=== PATIENT | male | born 1985 | race Hispanic/Latino ===

== ENCOUNTER 2018-10-15 10:39 | Outpatient (CLI) | payer OTHER ==
[~2018-10-15 10:39] MED LIST: Iopamidol 370 76% 100 ML VIAL ONE
--- NOTE | 2018-10-15 14:53 | CT ---
CT ABDOMEN WITH IV CONTRAST 10/15/2018 CLINICAL INFORMATION: Diarrhea for one year as well as abdominal pain. Patient diagnosed with Crohn's disease. COMPARISON: None. Technique: Multiple contiguous axial CT images are obtained through the abdomen and pelvis with IV contrast. Cor onal reformatted images are provided. FINDINGS: Lower Chest: within normal limits. Vessels: Thoracic aorta is normal in caliber. Abdomen: Portal vein:Patent Gallbladder: Within normal limits for CT imaging. Liver: A subcentimeter too small to characterize hypodense lesion is seen in the lateral aspect right hepatic lobe; the liver otherwise demonstrates a normal CT appearance. Pancreas: within normal limits. Spleen: within normal limits. Adrenals: within normal limits. Kidneys: within normal limits. Bowel: There is wall thickening involving the fourth portion of the duodenum as well as the most prox imal jejunum. These findings could be related to nonspecific enteritis, but findings may be attributable to patient's known inflammatory bowel disease. No additional loops of bowel wall thicken ing are seen in the visualized abdomen. Imaging of the pelvis was not performed. Appendix: The appendix is visualized and normal in caliber. Peritoneum: No ascites or free air; no fluid collection. Mesentery and Retroperitoneum: No enlarged mesenteric or retroperitoneal lymph nodes. Abdominal Wall: within normal limits. Osseous structures: Within normal limits. IMPRESSION: Bowel wall thickening involving the fourth portion of the duodenum as well as the most proximal jejun um. No adjacent inflammatory changes are seen. Lumen of the bowel in this region is also mildly dilated. Findings could be related to nonspecific enteritis, but findings are likely attributable to patient's known inflammatory bowel disease.
== END 2018-10-15 10:40 | disposition home or self-care (01) ==
LOC: SCSCT 10:39
PROVIDERS: ATTEND Internal Medicine Gastroenterology
DX: R10.9 Unspecified abdominal pain (principal); K63.89 Other specified diseases of intestine; K59.8 Other specified functional intestinal disorders; Z87.19 Personal history of other diseases of the digestive system
CPT/HCPCS: 74177; Q9967

== ENCOUNTER 2021-03-23 12:55 | Outpatient (CLI) | payer OTHER ==
[2021-03-23] MEDS ORDERED: Lidocaine 1% PF 10 ML AMP ONE (13:15)
[2021-03-23] MEDS ORDERED: EPINEPHrine 1 MG/ML AMP ONE (13:15)
[2021-03-23] MEDS ORDERED: Gadobenate Dimeglumine 529 MG/1 ML (20ML VIAL) ONE (13:15)
[2021-03-23] MEDS ORDERED: Iopamidol 300 61% 50 ML VIAL FS ONE (13:15)
== END 2021-03-23 12:56 | disposition home or self-care (01) ==
LOC: RAD 12:55
PROVIDERS: ATTEND Orthopaedic Surgery
DX: S43.432A Superior glenoid labrum lesion of left shoulder, initial encounter (principal)
CPT/HCPCS: 23350; A9577; J0171; J2001; Q9967